=== PATIENT | female | born 2000 | race African-American/Black ===

== ENCOUNTER 2022-06-27 09:59 | Emergency (ER) | payer OTHER, SELFPAY ==
--- NOTE | ~2022-06-27 | XR_ITS ---
EXAMINATION: XR thoracic spine 3V DATE: 06/27/2022 11:34 INDICATION: Midline back pain. TECHNIQUE: 3 views of thoracic spine were obtained. COMPARISON: None. FINDINGS: There is 6 degrees dextrocurvature of thoracic spine. Vertebral body heights and interverte bral disc heights are normal. There are endplate osteophytes at a few levels. IMPRESSION: 1. Mild thoracic spondylosis. Reviewed, dictated and finalized at location A.
[2022-06-27 10:29] VITALS: BP 119/60; PULSE 80; RESP 16; TEMP 36.6; O2SAT 100
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
[2022-06-27] MEDS: ACETAMINOPHEN 500 MG TABLET 1000 MG PO (11:39)
[2022-06-27] MEDS: IBUPROFEN 400 MG TABLET PO (11:39)
== END 2022-06-27 12:14 | disposition home or self-care (01) ==
PROVIDERS: Emergency Provider Emergency Medicine
DX: S29.012A Strain of muscle and tendon of back wall of thorax, initial encounter (principal); M47.814 Spondylosis without myelopathy or radiculopathy, thoracic region; V49.40XA Driver injured in collision with unspecified motor vehicles in traffic accident, initial encounter
CPT/HCPCS: 72072; 81025; 99283; A9270